=== PATIENT | female | born 1960 | race Caucasian/White ===

== ENCOUNTER 2020-08-27 09:16 | Day surgery (SDC) | payer BC, OTHER ==
[2020-08-21 12:50] VITALS: BMI 28.3
[2020-08-27] MEDS ORDERED: ONDANSETRON 4 MG/2 ML VIAL IVPUSH PRN (11:42)
[2020-08-27] MEDS ORDERED: oxyCODONE HCL 5 MG TABLET PO PRN ×3 (11:42→16:41)
[2020-08-27] MEDS ORDERED: fentaNYL CITRATE 250 MCG/5 ML VIAL ONE (11:47)
[2020-08-27] MEDS ORDERED: DEXAMETHASONE SOD PHOSPHATE 4 MG/1 ML VIAL ONE (11:48)
[2020-08-27] MEDS ORDERED: PROPOFOL 20 ML ONE (11:48)
[2020-08-27] MEDS ORDERED: ROCURONIUM BROMIDE 50 MG/5 ML SYRINGE ONE (11:48)
[2020-08-27] MEDS ORDERED: ONDANSETRON 4 MG/2 ML VIAL ONE ×2 (11:48→16:21)
[2020-08-27] MEDS ORDERED: MIDAZOLAM HCL 2 MG/2 ML SINGLE DOSE VIAL ONE (11:48)
[2020-08-27] MEDS ORDERED: BUPIVACAINE HCL/PF 2.5 MG/ML - 30 ML VIAL IJ ONE (12:17)
[2020-08-27] MEDS ORDERED: BUPIVACAINE HCL/PF 0.25% (2.5MG/ML) 10 ML VIAL ONE (12:17)
[2020-08-27] MEDS ORDERED: BUPIVACAINE LIPOSOME/PF (EXPAREL) 266 MG/20 ML VIAL ONE (12:18)
[2020-08-27] MEDS ORDERED: HEPARIN NA (PORCINE) 5,000 UNITS/ML 1ML VIAL ONE (12:28)
[2020-08-27] MEDS ORDERED: ceFAZolin SODIUM 1 GM VIAL ONE (12:40)
[2020-08-27] MEDS ORDERED: NEOSTIGMINE METHYLSULFATE 0.5 MG/1 ML - 10 ML MDV ONE (14:26)
[2020-08-27] MEDS ORDERED: GLYCOPYRROLATE 0.2 MG/1 ML VIAL ONE (14:26)
[2020-08-27] MEDS ORDERED: MORPHINE SULFATE 2 MG/ML VIAL IVPUSH PRN (16:41)
[2020-08-27] MEDS ORDERED: ALPRAZolam 2 MG TABLET PO PRN (16:42)
[2020-08-27] MEDS ORDERED: LACTATED RINGERS SOLUTION 1,000 ML IV SCH (16:45)
[2020-08-27] MEDS: INSULIN SLIDING SCALE (NOVOLOG) 1 VIAL SQ SCH (18:11)
[2020-08-27] MEDS: CEFAZOLIN 1 GM/D5W 1 GM/50 ML BAG IVPB SCH (18:13)
[2020-08-27] MEDS ORDERED: MONTELUKAST NA 10 MG TABLET PO SCH (22:00)
[2020-08-28] MEDS: CEFAZOLIN 1 GM/D5W 1 GM/50 ML BAG IVPB SCH ×3 (01:00→12:04)
[2020-08-28] MEDS: INSULIN SLIDING SCALE (NOVOLOG) 1 VIAL SQ SCH ×2 (06:40→11:20)
[2020-08-28] MEDS ORDERED: HEPARIN NA (PORCINE) 5,000 UNITS/ML 1ML VIAL SQ SCH (07:31)
[2020-08-28] MEDS ORDERED: ALPRAZolam 1 MG TABLET PO PRN (09:24)
[2020-08-28] MEDS ORDERED: LORATADINE 10 MG TABLET PO PRN (10:00)
[2020-08-28 12:56] VITALS: BP 119/77; PULSE 77; TEMP 98.3
== END 2020-08-28 13:06 | disposition home or self-care (01) ==
LOC: FASUSAT 09:16 → FM/S 17:38 → FASUSAT 08-28 13:06
PROVIDERS: ATTEND Plastic Surgery
PROC: 0J080ZZ Alteration of Abdomen Subcutaneous Tissue and Fascia, Open Approach (ICD-10-PCS; principal; 2020-08-27 13:04)
DX: Z41.1 Encounter for cosmetic surgery (principal)
CPT/HCPCS: 82962; 88300-TC; 94760; J1644